=== PATIENT | female | born 1990 | race Caucasian/White ===

== ENCOUNTER 2022-10-15 10:49 | Emergency (ER) | payer OTHER, SELFPAY ==
[2022-10-15 11:00] VITALS: BP 120/94; PULSE 106; RESP 14; TEMP 36.8; O2SAT 100; BMI 22.2
--- NOTE | 2022-10-15 11:26 | ED_ITS ---
HPI - Ear Problem General Date Seen: 10/15/22 Chief complaint: Ear/Nose/Throat Problem Stated complaint: lump under L ear, unable to hear Time Seen by Provider: 10/15/22 10:53 Source: patient Mode of arrival: ambulatory Limitations: no limitations History of Present Illness HPI Narrative: Patient is a very nice 32-year-old female who presents here with left ear pain, inability here out of it, it has been since yesterday, she notices a slight swelling below the left ear, he has not been sticking anything in her ear, doing no swimming, no history of trauma or injury. Denies any fevers chills or sweats, says have a chronic history of lymph node swelling she tells me. And previous ear issues, with tubes in her ears as young person. MD Complaint: ear pain Location: left ear Duration: constant Severity: moderate Relieving factors: nothing Exacerbating factors: chewing and position of head Discharge from ear: no Associated symptoms ear: decreased hearing Treatment prior to arrival: none Related Data Home Medications Medication Instructions Recorded Confirmed dextroamphetamine-amphetamine 10 10 mg PO BID 10/15/22 10/15/22 mg tablet (Adderall) levonorgestrel intrauterine 10/15/22 Allergies Allergy/AdvReac Type Severity Reaction Status Date / Time Latex, Natural Rubber Allergy Anaphylaxis Verified 10/15/22 11:00 Review of Systems Status of ROS: Reports: 6 or more systems reviewed and unremarkable except as noted in History and below Exam Narrative: Exam Narrative: Patient is seen in room 4 she is nontoxic speaking to me normally, her face ease his symmetrical bilaterally, no swelling to suggest that this is salivary gland or parotid. Mouth opening normal with absence of trismus, oropharynx otherwise normal. Left ear is shows almost complete cerumen impaction, right side is entirely normal, her place she has swelling just below her left ear, is a lymph node. It is not hot common nor is it is significantly involved, less than a cm for sure. No meningismus, neck is supple full range of motion no other lymphadenopathy that the is noted. Const: Vital Signs, click to edit/add: Vital Signs - 24 hr 10/15/22 11:00 Temperature 98.2 F Pulse Rate [Right Pulse Oximeter] 106 H Respiratory Rate 14 Blood Pressure [Ri ght Upper Arm] 120/94 H Pulse Oximetry 100 Oxygen Delivery Me thod Room Air Documenting provider has reviewed patient's vital signs: yes Course Course Hospital Course: I discussed with her that there could be a low level external otitis causing this issue with this hearing loss I believe is probably from just the cerumen, [id number] cerumen drops is suggested, and follow-up in the clinic if needing irrigation. Will put her on a low-dose Keflex after discussion with over the risks benefits and side effects. I recommend that she does not squeeze or touch this area, as it typically is worse with this. As it is a very sens itive tissue, that will swell. Vital Signs Vital signs: Initial Vital Signs Temperature 98.2 F 10/15/22 11:00 Temperature Source Temporal Artery Scan 10/15/22 11:00 Pulse Rate 106 H 10/15/22 11:00 Respiratory Rate 14 10/15/22 11:00 Blood Pressure 120/94 H 10/15/22 11:00 Blood Pressure Mean 102 10/15/22 11:00 Blood Pressure Position Sitting 10/15/22 11:00 Pulse Oximetry 100 10/15/22 11:00 Oxygen Delivery Method Room Air 10/15/22 11:00 Vital Signs Temperature 98.2 F 10/15/22 11:00 Pulse Rate 106 H 10/15/22 11:00 Respiratory Rate 14 10/15/22 11:00 Blood Pressure 120/94 H 10/15/22 11:00 Pulse Oximetry 100 10/15/22 11:00 Oxygen Delivery Method Room Air 10/15/22 11:00 Temperature 98.2 F 10/15/22 11:00 Pulse Rate 106 H 10/15/22 11:00 Respiratory Rate 14 10/15/22 11:00 Blood Pressure 120/94 H 10/15/22 11:00 Pulse Oximetry 100 10/15/22 11:00 Oxygen Delivery Method Room Air 10/15/22 11:00 Discharge Plan Discharge Clinical Impression: Lymphadenopathy of left cervical region, Cerumen impaction, Acute ear pain, Decreased hearing of left ear Patient Disposition: Home, Self-Care Condition: Stable Instructions: Lymphadenopathy (ED), Earache (ED) Additional Instructions: While you definitely have wax in her left ear. Would recommend use of o [id number]-[id number] wax medications as we described. I believe the spot we are feeling is a lymph node, would recommend that she try little bit of antibiotic to see if he can get this to calmed down and please do not touch it squeeze it, ice is probably the best solution. Follow-up in the clinic for earwax removal of ongoing. Prescriptions: No Action levonorgestrel [Kyleena] intrauterine dextroamphetamine-amphetamine [Adderall] 10 mg tablet 10 mg PO BID Rx Instructions: administer doses at least 4-6 hours apart Stand Alone Forms: [facility] Instructions
== END 2022-10-15 11:41 | disposition home or self-care (01) ==
PROVIDERS: Emergency Provider Family Medicine
DX: R59.0 Localized enlarged lymph nodes (principal); H61.23 Impacted cerumen, bilateral; H92.02 Otalgia, left ear; H91.90 Unspecified hearing loss, unspecified ear
CPT/HCPCS: 99283; 99284